=== PATIENT | male | born 1955 | race Caucasian/White ===

== ENCOUNTER 2016-11-03 23:02 | Observation (INO) | payer BC ==
[2016-11-03 23:54] LABS: ABSOLUTE NEUTROPHIL COUNT 2.5 K/mm3 (1.8-7.7); BASO % 0.2 % (0.2-1.0); EOS # 0.1 (0.0-0.5); EOS % 1.7 % (0.9-2.9); HEMATOCRIT 35.9 % (32.0-52.0); HEMOGLOBIN 12.3 gm/l (14.0-18.0); IMM NEUT% 0.2 % (0-1); LYMPH # 1.4 (1.0-4.8); LYMPH % 30.5 % (15-45); MEAN CORPUSCULAR HEMOGLOBIN 31.9 pg (27.0-31.0); MEAN CORPUSCULAR HGB CONC 34.3 g/dl (33.0-37.0); MONO # 0.7 (0.0-0.8); NEUT % 53.4 % (43-75); PLATELET COUNT 265 K/mm3 (130-400); RED CELL DISTRIBUTION WIDTH 11.9 % (11.5-14.5)
[2016-11-04 00:11] LABS: ALB/GLOB RATIO 1.1 (>1.0); ALBUMIN 3.7 gm/dL (3.5-5.7); CALCIUM 8.8 mg/dL (8.6-10.3)
[2016-11-04] MEDS ORDERED: METRONIDAZOLE IV ONE (01:50)
[2016-11-04] MEDS ORDERED: NS IV ONE (01:50)
[2016-11-04] MEDS ORDERED: CIPROFLOXACIN 200 MG IV ONE (01:50)
[2016-11-04] MEDS ORDERED: BISACODYL 10 MG SUP PR PRN (03:08)
[2016-11-04] MEDS ORDERED: SODIUM CHLORIDE 0.9% 100 ML IV PRN (03:08)
[2016-11-04] MEDS ORDERED: MENTHOL/CETYLPYRD 1 EACH LOZENGE PO PRN (03:08)
[2016-11-04] MEDS ORDERED: MAGNESIUM HYDROXIDE 30 ML UDCUP PO PRN (03:08)
[2016-11-04] MEDS ORDERED: ACETAMINOPHEN 325 MG TABLET PO PRN (03:08)
[2016-11-04] MEDS ORDERED: BISACODYL 5 MG TABLET.EC PO PRN (03:08)
[2016-11-04] MEDS ORDERED: BLISTEX LIPSTICK 1 EACH TP PRN (03:08)
[2016-11-04] MEDS ORDERED: DIPHENHYDRAMINE HCL 50 MG CAPSULE PO PRN (03:08)
[2016-11-04 06:15] LABS: HEMATOCRIT 36.5 % (32.0-52.0); HEMOGLOBIN 12.4 gm/l (14.0-18.0); MEAN CELL VOLUME 93.1 fl (80.0-94.0); MEAN CORPUSCULAR HEMOGLOBIN 31.6 pg (27.0-31.0); RED CELL DISTRIBUTION WIDTH 11.9 % (11.5-14.5)
[2016-11-04] MEDS ORDERED: PANTOPRAZOLE 40 MG TABLET DR PO SCH (07:00)
--- NOTE | 2016-11-04 07:07 | CT ---
Examination: Noncontrast CT scans of the Abdomen and Pelvis Clinical indication: Lower abdominal pain. Comparison:None Technique: Multidetector CT scanner was utilized. No oral or intravenous contrast was administered. Axial images were acquired from just above the domes of the diaphragm to the iliac crest. A CT scan of the pelvis was carried out from the iliac crest to the initial tuberosities. Sagittal, axial and coronal stacked 5 mm images were reviewed. Findings: Abdomen CT (noncontrast): There is mild probable scarring within the lingular distribution. The lung bases otherwise exhibit no consolidation or effusion. There is approximately a millimeter cyst in the lateral segment of the left lobe of liver. The remainder of the hepatic parenchyma is unremarkable. The gallbladder is within normal limits. There is no evidence of biliary obstruction. The spleen size and attenuation are within normal limits. The pancreas is normal in size and contours. No inflammatory stranding is identified. The pancreatic duct is unremarkable. The adrenals are unremarkable. The kidneys are without mass or hydronephrosis. No nephrolithiasis is identified. After chronic plaquing of the abdominal aorta is noted. There is no aneurysmal dilatation. The stomach is unremarkable. The visualized segments of small and large bowel are within normal limits. The osseous structures exhibit no displaced fracture. No lytic or blastic lesions are identified. Pelvic CT findings (noncontrast): The distal ureters and bladder are unremarkable. The prostate is normal in size. No adenopathy is identified. The distal abdominal aorta and iliac vessels are within normal limits. There is a suggestion of very minimal plantar stranding involving the descending colon above the left iliac crest. No perforation or abscess is identified. Visualized segments of small bowel are within normal limits. No pericecal inflammatory stranding is identified. No displaced fractures are identified. There are no gross osteolytic or blastic lesions. There is a fat-containing periumbilical hernia. IMPRESSION: 1. Mild diverticulitis of the descending colon without evidence of perforation or abscess. 2. Mild bibasilar lung parenchyma scarring. 3. Atherosclerosis. 4. Parapelvic renal cysts. Findings were communicated by [facility] to the emergency department at: 1:24 AM 11/04/2016
[2016-11-04 07:57] VITALS: BP 141/79
--- NOTE | 2016-11-04 08:30 | PDOC5 ---
ADMIT DATE: 11/04/16 DISCHARGE DATE: 11/04/16 ADMISSION DIAGNOSES: Hematochezia Diverticulosis Hypertension, benign essential PROCEDURES PERFORMED THIS HOSPITALIZATION: CT scan abd CONSULTATIONS: none HOSPITAL COURSE: This is a 61 year old who presented with 1 day of worsening hematochezia. large volume blood in stool per pt. He was noted to have diverticuli on CT scan. He had bloody BM in ER, referred to obs for monitoring of his hgb/hct. His labs remained stable and he did not have further bleeding after moving to the gen medical floor. He tolerated diet well w/o any pain or diarrhea. on AM of 11/04 he was strongly requesting permission to leave hospital as he needed to drive home. Discussed with him that it would be safer and better to wait until tomorrow, but that labs and course were reassuring. pt elected to leave this am. He is thus discharged. he has appt already to see his GI Dr for follow up. he has hx of HTN. He was controlled while in the hospital on atenolol 25mg daily. He is not sure what his home dose is. instructed to resume home dose on DC. left forearm and upper arm infiltrated from CT scan infusion. nontender, but infiltrate remains on discharge. care instructions given to pt on DC - Exam Vital Signs Temperature 98.0 F 11/04/16 07:56 Pulse Rate 77 11/04/16 07:56 Respiratory Rate 16 11/04/16 07:56 Blood Pressure 141/79 11/04/16 07:56 O2 Saturation by Pulse Oximetry 99 11/04/16 07:56 Oxygen Delivery Method Room Air Oxygen Flow Rate 0 General: Alert, Oriented x3, Cooperative, No Acute Distress HEENT: Atraumatic, Mucous membr. moist/pink Lungs: Clear to Auscultation Bilaterally, Normal Air Movement Cardiovascular: Regular Rate and Rhythm, Normal S1, Normal S2, No Murmur Abdomen: Soft, Hyperactive Bowel Sounds (mild), Non-Distended, No Tenderness Extremities: No Cyanosis, No Edema, No Tenderness Skin: Warm, Dry, Intact Neurological: Normal Speech Psych/Mental Status: Normal Affect, Normal Mood - Results Laboratory 11/04/16 05:45 11/04/16 05:45 RBC 3.92 L MCH 31.6 H - Problems:Assessment/Plan (1) Hematochezia Status: AcuteAssessment/Plan: resolving now. no BM since moving to the floor tolerating diet. has OP plans for FU already (2) Diverticula, colon Qualifiers: Diverticulosis bleeding: diverticulosis with bleeding Qualifier Code: ( K57.31) Diverticulosis of large intestine without perforation or abscess with bleeding Status: AcuteAssessment/Plan: new dx. as above placed on cipro and flagyl for coverage of possible infection (3) Hypertension Qualifiers: Hypertension type: essential hypertension Qualifier Code: (I10) Essential (primary) hypertension Status: ChronicAssessment/Plan: not sure on home dose, on atenolol 25mg here. to resume home dose on DC - Disposition: Disposition: to home today - Discharge Plan Forms: Discharge Instructions Additional Instructions: follow up with [facility] in 2-3 days. 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
[2016-11-04] MEDS: DOCUSATE SODIUM 100 MG CAPSULE PO SCH ×2 (09:00→09:05)
[2016-11-04] MEDS ORDERED: CIPROFLOXACIN 500 MG TABLET PO SCH (09:00)
[2016-11-04] MEDS ORDERED: METRONIDAZOLE 500 MG TABLET PO SCH (09:00)
[2016-11-04] MEDS ORDERED: ATENOLOL 25 MG TABLET PO SCH (09:00)
--- NOTE | 2016-11-04 11:30 | HP ---
JUDIE SANCHEZ [id number] MRN NUMBER: [id number] DATE OF : 1955 PRIMARY CARE PROVIDER: Jonny Palafox MD DATE OF ADMISSION: 11/04/2016 CHIEF COMPLAINT: Bloody stools. HISTORY OF PRESENT ILLNESS: The patient is a 61-year-old gentleman who is traveling here from his home in [place]. He has a past medical history of hypertension only. He had a colonoscopy about five years ago that showed some polyps, but otherwise was negative. He noted that one week ago, he developed some left lower quadrant pain mild. He states it was just a mild soreness. No change of his bowel movements at that time. This morning he developed some bloody bowel movements that increased in intensity and severity throughout the day to the point where he was having two to three of these bloody bowel movements with large amounts of blood in the stool per hour. Patient came into the emergency room for evaluation of this. He states that it is slowing down now. He is no longer having any left lower quadrant abdominal pain. this stopped with the bowel movements that he has been having. He is concerned about traveling home as he had planned to return home later today. PAST MEDICAL HISTORY: Positive for hypertension only. PAST SURGICAL HISTORY: Positive for: 1. Appendectomy in the past. 2. He has had multiple orthopedic surgeries including arthroscopy of both knees, both shoulders, and he has had a left lower leg open reduction and internal fixation, and a femur open reduction and internal fixation in the past. ALLERGIES: NO KNOWN DRUG ALLERGIES. MEDICATIONS: The patient is taking Atenolol unclear on the dose, he believes it is a lower dose. SOCIAL HISTORY: The patient is . He has several adult children. 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 He denies any tobacco use, and denies any drug use. He does drink alcohol, about two to four pints of beer four times a week or so. FAMILY HISTORY: Negative and noncontributory per patient. REVIEW OF SYSTEMS: A full 14-point review of systems is performed and positive for hematochezia as above. Positive for a left lower quadrant abdominal pain which is now resolved. Positive for mild lightheadedness when he was having severe bleeding which is again now resolved. PHYSICAL EXAMINATION: VITAL SIGNS: Temperature is 98.7. Pulse is 82. Blood pressure is 142/86. Saturating 98% on room air. Respiratory rate is 16. GENERAL: Patient is lying in bed, no acute distress. HEENT: Head: Normocephalic, atraumatic. Mucous membranes are moist. Oropharynx is clear. Eyes: Extraocular movements are intact. Pupils are equal, round, and reactive to light and accommodation. Conjunctiva are pink without injection. HEART: Regular rate and rhythm. No murmurs and no rubs. Positive S1, and S2. LUNGS: Clear to auscultation bilaterally. No wheezes, rales, or rhonchi. ABDOMEN: Obese. Soft, nontender and nondistended. Slightly hyperactive bowel sounds heard best at the left lower quadrant. EXTREMITIES: No cyanosis, clubbing, or edema. NEUROLOGIC: The patient is awake, alert and oriented. He is moving all of his extremities. PSYCHOLOGIC: Patient's affect is full and appropriate. LABORATORY DATA: CMP shows a glucose of 106, BUN of 22, creatinine of 1. His GFR is 75. Sodium is 135. Potassium is 4.2. Chloride is 102. CO2 is 23. Calcium is 8.8. His liver function tests are all within normal limits. His CBC shows a white count of 4.7, hemoglobin of 12.3, hematocrit 35.9, and platelet count of 265 without any shift. DIAGNOSTIC IMAGING: CT scan performed in the emergency department showed diverticulosis. ASSESSMENT AND PLAN: 1. Diverticulosis with hematochezia. Patient's bleeding is almost certainly secondary to this diverticulosis. He received one dose of metronidazole in the emergency department and it appears like his bleeding is already resolving spontaneously. I am going to continue him on Cipro and Flagyl despite the fact that I doubt that there is actually a diverticulitis occurring. I think it warrants at least that minimal protection. We will monitor his hemoglobin. Patient states he is very eager to get out earlier this morning, but is willing to stay if necessary for his safety. We will be rechecking his blood counts in the morning as well as at noon if he requires. 2. Hypertension. Patient's blood pressure is doing ok, slightly elevated though I believe he missed his blood pressure medications yesterday morning. I am going to continue him on atenolol assuming his dose if 25 mg, and we can adjust if necessary if he remains here. 3. Deep venous thrombosis prophylaxis. As the patient is actively bleeding deep venous thrombosis prophylaxis chemically is contraindicated. He is active and will not likely be remaining with us for more than a day or two. 4. Code status. Patient is FULL code. HUGH/russell Cc: Jonny Gibson MD in [place], [place]
== END 2016-11-04 10:50 | disposition home or self-care (01) ==
LOC: ED 23:02 → MS 11-04 01:55
PROVIDERS: ADMIT Family Medicine; ATTEND Family Medicine
DX: K57.31 Diverticulosis of large intestine without perforation or abscess with bleeding (principal); I10 Essential (primary) hypertension